=== PATIENT | male | born 1950 | race Caucasian/White ===

== ENCOUNTER 2020-12-19 10:44 | Outpatient (CLI) | payer MEDICARE, SELFPAY ==
--- NOTE | ~2020-12-19 | US_ITS ---
EXAMINATION: US venous doppler [facility] DATE: 12/19/2020 11:17 INDICATION: Left lower limb swelling TECHNIQUE: Alvarado scale images without and with compression and Doppler images of the left lower extrem ity veins were obtained. COMPARISON: None FINDINGS: The left common femoral vein, profunda femoral vein, femoral vein, popliteal vein, peroneal trunk, posterior tibial veins, and greater saphenous vein are patent. A 3.3 x 2.6 x 0.7 cm Calabrese's c yst is noted in the left popliteal fossa. IMPRESSION: 1. Patent left lower extremity veins. No evidence of deep venous thrombosis. Reviewed, dictated and finalized at location A. 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
== END 2020-12-19 10:45 | disposition home or self-care (01) ==
LOC: ANHIMG 10:48
PROVIDERS: PCP Family Medicine; Visit Provider Orthopaedic Surgery
DX: M79.89 Other specified soft tissue disorders (principal)
CPT/HCPCS: 93971

== ENCOUNTER 2021-04-02 17:21 | Emergency (ER) | payer MEDICARE, SELFPAY ==
--- NOTE | ~2021-04-02 | XR_ITS ---
EXAMINATION: XR chest 2V 04/02/2021 18:06 INDICATION: Midsternal chest pain PROCEDURE: 2 view chest COMPARISON: 08/25/2016 FINDINGS: The lungs are clear. The cardiomediastinal silhouette is within normal limits. There are no pleural effusions. There is no pneumothorax suspected. IMPRESSION: 1: NO ACUTE CARDIOPULMONARY DISEASE. Reviewed, dictated and finalized at location A.
--- NOTE | 2021-04-02 17:28 | ECG_ITS ---
Measurements Intervals [place] Rate: 99 P: 30 WV: 163 QRS: 16 QRSD: 98 T: 4 QT: 330 QTc: 423 Interpretive Statements SINUS RHYTHM BORDERLINE ST-T WAVE ABNORMALITY- ANTEROLAT/INF LEADS BASELINE ARTIFACT- I, II, AVR, AVF BORDERLINE ECG Electronically Signed On 04-02-2021 20:29:10 CDT by Sami Chow D.O.
[2021-04-02 17:44] VITALS: BP 132/73; PULSE 97; RESP 22; TEMP 36.3; O2SAT 97
[2021-04-02 17:56] LABS: Basophils Percent Auto 0.4 % (0.2-1.2); Eosinophils Percent Auto 0.1 % (0-4.4); Hematocrit 46.3 % (42.0-52.0); Immature Granulocyte Absolute 0.03 K/mm3 (0.00-0.031); Immature Granulocyte Percent A 0.3 % (0-0.5); Lymphocytes Absolute Auto 0.51 K/mm3 (0.9-3.2); Lymphocytes Percent Auto 5.2 % (18.3-44.2); Mean Corpuscular HGB Conc 34.6 g/dl (32-36); Mean Corpuscular Hemoglobin 29.4 pg (26-34); Mean Corpuscular Volume 85.1 fl (80-100); Mean Platelet Volume 9.7 fl (7.4-10.4); Monocytes Absolute Auto 0.7 K/mm3 (0.1-0.6); Monocytes Percent Auto 7.3 % (2.6-8.5); Neutrophils Absolute Auto 8.5 K/mm3 (1.3-6.7); Neutrophils Percent Auto 86.7 % (45.5-73.1); Platelet Count Result 225 k/mm3 (150-375); Red Blood Count 5.44 M/mm3 (4.6-6.20); Red Cell Distribution Width 12.6 % (11.5-14.5); White Blood Count 9.8 K/mm3 (4.5-10.0)
[2021-04-02 18:07] LABS: Partial Thromboplastin Time 24.3 SECONDS (22.3-36.8)
[2021-04-02 18:10] LABS: Anion Gap 11 mmol/L (8-16); Blood Urea Nitrogen 13 mg/dL (9-20); Calcium 9.7 mg/dL (8.4-10.2); Carbon Dioxide 26 mmol/L (22-30); Chloride 101 mmol/L (98-107); Estimated CRCL calculation 74 ml/min; Estimated Glomerular Filt Rate > 60; Glucose 151 mg/dL (75-110); Potassium 2.8 mmol/L (3.4-5.0); Sodium 138 mmol/L (137-145)
[2021-04-02 18:20] LABS: Troponin I < 0.012 ng/mL (0.000-0.034)
--- NOTE | 2021-04-02 18:31 | ED.GENADULT ---
HPI - General Adult General Chief complaint: Chest Pain <Kendra Alvarez MD - Last Filed: 04/08/21 23:14> Stated complaint: Chest Pain <Kendra Alvarez MD - Last Filed: 04/08/21 23:14> Time Seen by Provider: 04/02/21 18:18 <Kendra Alvarez MD - Last Filed: 04/08/21 23:14> Source: patient <Kendra Alvarez MD - Last Filed: 04/08/21 23:14> History of Present Illness HPI narrative: Patient is a 70 y/o male complaining of chest pain staring 6 hours ago after he ate some taco. He states that his pain was located in mid sternal area. He describes his pain as sharp and burning and rates it as 6/10. He took some Pepcid which helped with his pain. His chest pain lasted about 3 hours and he is currently pain free. <Kendra Alvarez MD - Last Filed: 04/08/21 23:14> Related Data Home medications: Home Medications Medication Instructions Recorded Confirmed aspirin 81 mg tablet,delayed 81 mg PO DAILY 12/28/19 12/06/20 release <Kendra Alvarez MD - Last Filed: 04/08/21 23:14> Allergies/adverse reactions: Allergies Allergy/AdvReac Type Severity Reaction Status Date / Time No Known Allergies Allergy Unverified 01/26/20 14:52 <Kendra Alvarez MD - Last Filed: 04/08/21 23:14> Review of Systems Constitutional: Constitutional: Denies chills, Denies fever(s), Denies headache(s) and Denies weakness <Kendra Alvarez MD - Last Filed: 04/08/21 23:14> Eyes: Eyes: Denies blurry vision <Kendra Alvarez MD - Last Filed: 04/08/21 23:14> ENT: Denies headache(s) and Denies neck pain <Kendra Alvarez MD - Last Filed: 04/08/21 23:14> Cardiovascular: Cardiovascular: Reports chest pain and Denies dyspnea <Kendra Alvarez MD - Last Filed: 04/08/21 23:14> Respiratory: Respiratory: Denies cough and Denies dyspnea <Kendra Alvarez MD - Last Filed: 04/08/21 23:14> Gastrointestinal: Gastrointestinal: Denies abdominal pain, Denies diarrhea, Denies nausea and Denies vomiting <Kendra Alvarez MD - Last Filed: 04/08/21 23:14> Genitourinary: Genitourinary: Denies hematuria and Denies dysuria <Kendra Alvarez MD - Last Filed: 04/08/21 23:14> Musculoskeletal: Musculoskeletal: Denies back pain and Denies neck pain <Kendra Alvarez MD - Last Filed: 04/08/21 23:14> Neurologic: Denies headache(s) and Denies weakness <Kendra Alvarez MD - Last Filed: 04/08/21 23:14> [facility] Past Medical History Medical History: Medical History Acute pain of left knee Bilateral carpal tunnel syndrome Colon cancer screening Essential (primary) hypertension Functional diarrhea History of prostate cancer Low TSH level Mixed hyperlipidemia Seasonal allergic rhinitis Ulnar neuropathy of both upper extremities <Kendra Alvarez MD - Last Filed: 04/08/21 23:14> Surgical History Surgical History: Surgical History H/O hernia repair (~2017) H/O prostatectomy (~2001) History of cholecystectomy (~2015) <Kendra Alvarez MD - Last Filed: 04/08/21 23:14> Family History Family History: Family History Mother Heart disease Hypertension Father Heart disease Hypertension Grandparent Alzheimer disease Grandparent Heart disease Hypertension Grandparent Acute myocardial infarction Grandparent Acute myocardial infarction <Kendra Alvarez MD - Last Filed: 04/08/21 23:14> Social History Social History: Social History Smoking status: Never smoker Alcohol intake: never Substance use: never Substance use type: does not use Gender identity (if verbalized by the patient): Male <Kendra Alvarez MD - Last Filed: 04/08/21 23:14> Exam Const: General: no acute distress and well developed <Kendra Alvarez MD - Last Filed: 04/08/21 23:14> O
[2021-04-02] MEDS: POTASSIUM CHLORIDE 20 MEQ TABLET 40 MEQ PO (18:34)
[2021-04-02] MEDS: ASPIRIN 81 MG CHEWABLE TABLET 324 MG PO (18:38)
[2021-04-02 20:04] VITALS: BP 123/65; PULSE 85; RESP 27; O2SAT 97
== END 2021-04-02 20:05 | disposition left against medical advice (07) ==
PROVIDERS: Emergency Medicine; Emergency Provider Emergency Medicine; PCP Family Medicine
DX: R07.2 Precordial pain (principal); E87.6 Hypokalemia; I10 Essential (primary) hypertension; Z85.46 Personal history of malignant neoplasm of prostate; E78.2 Mixed hyperlipidemia; G56.23 Lesion of ulnar nerve, bilateral upper limbs; Z90.79 Acquired absence of other genital organ(s); Z79.82 Long term (current) use of aspirin; R94.31 Abnormal electrocardiogram [ECG] [EKG]
CPT/HCPCS: 36415; 71046; 80048; 84484; 85025; 85610; 85730; 93005; 99284; A9270

== ENCOUNTER 2021-05-27 08:21 | Outpatient (CLI) | payer MEDICARE, SELFPAY ==
--- NOTE | ~2021-05-27 | MR_ITS ---
EXAMINATION: MR MRCP wo/w con/w 3D wo ind DATE: 05/27/2021 10:13 INDICATION: Abnormal levels of other serum enzymes TECHNIQUE: Magnetic resonance imaging (MRI) of the abdomen was performed without and with intravenous contrast. Sequences included coronal T2-weighted SS-FSE ARC, coronal T2-weighted FS SS-FSE, coronal T2-weighted 2D FS FIESTA, Water:Coronal LAVA-Flex, sagittal T2-weighted SS-FSE ARC, axial SSFSE ARC, axial 3D DualEcho, axial DWI B=600, axial T1-weighted LAVA, FAT:Coronal LAVA-Flex, and coronal in and opposed phase LAVA-Flex. Thick-slab T2-weighted FRFSE-XL images were obtained for magnetic resonance cholangiopancreatography (MRCP). Maximum intensity projection 3-D reconstructions of the volumetric data were created by the technologist. Postcontrast sequences included a time course of axial T1-weig hted LAVA, FAT:Coronal LAVA-Flex, coronal in and opposed phase LAVA-Flex, and Water:Coronal LAVA-Flex . COMPARISON: 01/17/2019 CONTRAST: Multihance, 16 cc FINDINGS: ABDOMEN MRI: There are changes of interval cholecystectomy. Cysts of the liver measure up to 11 mm in the left hepatic lobe. There is a subtle 11 mm enhancing lesion in the right hepatic lobe seen only on the late arterial/early portal venous postcontrast sequence image 33. There appears to be a tiny f ocally dilated bile duct in the peripheral aspect of liver segment VIII. Bilateral gynecomastia is no jovanni. The heart size is normal. The spleen, pancreas, and adrenal glands are normal. Cysts of the kidn eys measure up to 3 cm on the right. There are no pathologically enlarged abdominal lymph nodes. No d ilated loops of bowel are present. There is a large volume of colonic stool. ABDOMEN MRCP: There is no extrahepatic biliary dilatation. The common bile duct measures up to 4 mm. The pancreatic duct is normal in course and caliber. IMPRESSION: 1. No MR correlate for abnormal liver function tests. 2. Mildly dilated intrahepatic duct of the right hepatic lobe of unclear etiology. Follow-up MRI with out and with contrast in six months is recommended. 3. 11 mm lesion of the right hepatic lobe which could reflect transient hepatic intensity difference or possibly focal nodular hyperplasia. This can be evaluated at the same time as follow-up of the dil ated intrahepatic duct. Reviewed, dictated and finalized at location B. IMPRESSION: 1. No MR correlate for abnormal liver function tests. 2. Mildly dilated intrahepatic duct of the right hepatic lobe of unclear etiolo gy. Follow-up MRI without and with contrast in six months is recommended. 3. 11 mm lesion of the right hepatic lobe which could reflect transient hepatic intensity difference or possibly focal nodular hyperplasia. This can be evalua jovanni at the same time as follow-up of the dilated intrahepatic duct.
[2021-05-27 10:53] LABS: Alanine Aminotransferase 66 U/L (4-50); Albumin Level 4.1 g/dL (3.5-5.1); Alkaline Phosphatase 83 U/L (38-126); Anion Gap 8 mmol/L (8-16); Aspartate Amino Transferase 34 U/L (17-59); Bilirubin,Total 0.9 mg/dL (0.2-1.3); Blood Urea Nitrogen 9 mg/dL (9-20); Calcium 9.2 mg/dL (8.4-10.2); Carbon Dioxide 24 mmol/L (22-30); Chloride 107 mmol/L (98-107); Estimated Glomerular Filt Rate > 60; Glucose 100 mg/dL (65-110); Potassium 4.3 mmol/L (3.4-5.0); Sodium 139 mmol/L (137-145)
[2021-05-27 12:08] LABS: Hepatitis B Surface Antigen Negative (Negative)
[2021-05-27 12:25] LABS: Hepatitis C Virus Antibody Negative (Negative)
[2021-05-27 13:01] LABS: HAV RESULT Negative (Negative); Hepatitis B Core IgM Result Negative (Negative)
[2021-06-02 09:52] LABS: Mitochondrial (M2) Ab (IgG) 27.5 U (<=20.0)
== END 2021-05-27 08:22 | disposition home or self-care (01) ==
PROVIDERS: PCP Family Medicine; Visit Provider Nurse Practitioner Family
DX: R74.8 Abnormal levels of other serum enzymes (principal); R10.11 Right upper quadrant pain; E87.6 Hypokalemia
CPT/HCPCS: 36415; 74183; 76376; 80053; 80074; 83520; 86038; A9577

== ENCOUNTER → 2021-08-09 08:14 | Outpatient (CLI) | payer MEDICARE, SELFPAY ==
[2021-08-09 18:36] LABS: SARS-CoV-2 RNA PCR Negative
== END ==
PROVIDERS: PCP Family Medicine; Visit Provider Family Medicine
DX: J01.00 Acute maxillary sinusitis, unspecified (principal); Z20.822 Contact with and (suspected) exposure to COVID-19
CPT/HCPCS: C9803; U0003; U0005

== ENCOUNTER 2022-03-13 00:18 | Day surgery (SDC) | payer MEDICARE, SELFPAY ==
[2022-03-06 12:16] VITALS: BMI 28.0
[2022-03-13 08:17] VITALS: BP 147/82; PULSE 70; RESP 18; TEMP 36.3; O2SAT 99
--- NOTE | 2022-03-13 08:18 | WPDGICN ---
Assessment and Plan Assessment and plan (1) Encounter for screening colonoscopy: Code(s): Z12.11 - Encounter for screening for malignant neoplasm of colon Status: Acute Assessment and Plan: Patient presents today for screening colonoscopy. He appears to be at average risk for colon polyps. GI Consult Note Consult date/time: 03/13/22 08:18 HPI: Aurelio Young Jr. is a 71 year old male Presents for screening colonoscopy. Patient reports his current weight appetite and bowel movements are normal. He denies abdominal pain. He has had no bleeding. His last colonoscopy was 10 years ago. Presents today for neoplasia screening. Patient does have a prior history of ERCP and clearance of the common bile duct at a different institution. 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 Labs on 12/27/2021 with GGT 15, AST 24 ALT 37. Essential (primary) hypertension Functional diarrhea History of prostate cancer PSA less than 0.1 on 06/24/2021 Hypokalemia Indigestion Low TSH level Mixed hyperlipidemia Total cholesterol 191, triglycerides 102, HDL 52, LDL 119 on 06/24/2021 . Total cholesterol 119, triglycerides 101, HDL 50, LDL 51 on 12/27/2021 RUQ pain Seasonal allergic rhinitis Ulnar neuropathy of both upper extremities Surgical History Surgical History H/O hernia repair (~2016) H/O prostatectomy (~2001) History of cholecystectomy (~2015) Family History Family History Mother Heart disease Hypertension Father Heart disease Hypertension Grandparent Alzheimer disease Grandparent Heart disease Hypertension Grandparent Acute myocardial infarction Grandparent Acute myocardial infarction Social History Social History Smoking status: Never smoker Alcohol intake: never Substance use: never Substance use type: does not use Living arrangements: with family Gender identity (if verbalized by the patient): Male Spiritual care concerns: No Meds Home Medications and Allergies Home Medications Medication Instructions Recorded Confirmed Type aspirin 81 mg tablet,delayed 81 mg PO DAILY 12/28/19 03/06/22 History release metoprolol succinate 50 mg 50 mg PO DAILY #90 tablet 05/21/20 03/06/22 Rx tablet,extended release 24 hr tgysiapi-ipx-FB 200 mcg-vit K 15 1 tablet PO DAILY tablet 06/10/21 03/06/22 History mcg-lycope 150 wwe-fipfku-epbw tablet atorvastatin 20 mg tablet 20 mg PO DAILY 12/17/21 03/06/22 History losartan 50 mg tablet 50 mg PO DAILY #30 tablet 12/17/21 03/06/22 Rx Allergies Allergy/AdvReac Type Severity Reaction Status Date / Time No Known Allergies Allergy Verified 03/13/22 08:16 Exam Narrative: Physical exam reveals patient to be alert. Vital signs stable. HEENT exam is unremarkable. Patient is anicteric. Lungs are clear to auscultation and percussion. Heart is without murmur or extra sounds. Abdominal exam bowel sounds are present soft nontender with no organomegaly. Digital external rectal exam is normal.
[2022-03-13] MEDS: LACTATED RINGERS 1,000 ML 150 ML IV CONT (08:29)
--- NOTE | 2022-03-13 08:44 | WPDANESEPPF ---
Anes - Initial Pre Proc Eval Procedure: Operation Date: 03/13/22 09:30 Proposed Procedures p Screening Colonoscopy - Pernell Valentine MD Date/Time: 03/13/22 08:44 Surgeon: Pernell Valentine MD Pre Op Diagnosis: neoplasm screening Patient Data Age: 71 Gender: M Height: 1.75 m Weight: 89.4 kg Last Vital Signs Temp 36.3 C L 03/13/22 08:17 Pulse 70 03/13/22 08:17 Resp 18 03/13/22 08:17 BP 147/82 H 03/13/22 08:17 Pulse Ox 99 03/13/22 08:17 Allergies Allergy/AdvReac Type Severity Reaction Status Date / Time No Known Allergies Allergy Verified 03/13/22 08:16 Home Medications Medication Instructions Recorded Confirmed Type aspirin 81 mg tablet,delayed 81 mg PO DAILY 12/28/19 03/06/22 History release metoprolol succinate 50 mg 50 mg PO DAILY #90 tablet 05/21/20 03/06/22 Rx tablet,extended release 24 hr edwamvms-eow-DP 200 mcg-vit K 15 1 tablet PO DAILY tablet 06/10/21 03/06/22 History mcg-lycope 150 zxo-yhdfht-sblg tablet atorvastatin 20 mg tablet 20 mg PO DAILY 12/17/21 03/06/22 History losartan 50 mg tablet 50 mg PO DAILY #30 tablet 12/17/21 03/06/22 Rx Patient hx anesthesia problems: none Family hx anesthesia problems: none Results Review: All pre-operative results and documents have been reviewed as part of the pre-operative evaluation. 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 Labs on 12/27/2021 with GGT 15, AST 24 ALT 37. Essential (primary) hypertension Functional diarrhea History of prostate cancer PSA less than 0.1 on 06/24/2021 Hypokalemia Indigestion Low TSH level Mixed hyperlipidemia Total cholesterol 191, triglycerides 102, HDL 52, LDL 119 on 06/24/2021 . Total cholesterol 119, triglycerides 101, HDL 50, LDL 51 on 12/27/2021 RUQ pain Seasonal allergic rhinitis Ulnar neuropathy of both upper extremities Surgical History Surgical History H/O hernia repair (~2016) H/O prostatectomy (~2001) History of cholecystectomy (~2015) Family History Family History Mother Heart disease Hypertension Father Heart disease Hypertension Grandparent Alzheimer disease Grandparent Heart disease Hypertension Grandparent Acute myocardial infarction Grandparent Acute myocardial infarction Social History Social History Smoking status: Never smoker Alcohol intake: never Substance use: never Substance use type: does not use Living arrangements: with family Gender identity (if verbalized by the patient): Male Spiritual care concerns: No Anes - Eval Final PreProcedure Day of Procedure 03/13/22 08:44 Patient weight: overweight Heart: regular rate and rhythm Lungs: decreased breath sounds Airway: Mallampati scale class II Neurological: alert and oriented Last oral intake: >/= 8 hours ASA classification: III Emergent: no Anesthetic plan: proceed Anesthesia type and monitoring: general GIVS and standard monitoring Results Review: All pre-operative results and documents have been reviewed as part of the pre-operative evaluation. Informed Consent: The patient's anesthetic plan and its attendant risks and benefits were discussed with the patient/family/POA. Questions were solicited and answers provided to the satisfaction of the patient/fami
[2022-03-13 09:08] VITALS: BP 89/51; PULSE 56; RESP 22; O2SAT 98
[2022-03-13 09:18] VITALS: BP 89/48; PULSE 52; RESP 22; O2SAT 97
[2022-03-13 09:23] VITALS: BP 117/65; PULSE 50; RESP 18; O2SAT 100
== END 2022-03-13 09:35 | disposition home or self-care (01) ==
PROVIDERS: PCP Family Medicine; Visit Provider Internal Medicine Gastroenterology
PROC: 0DJD8ZZ Inspection of Lower Intestinal Tract, Via Natural or Artificial Opening Endoscopic (ICD-10-PCS; CPT 45378; principal; 2022-03-13 09:30)
DX: Z12.11 Encounter for screening for malignant neoplasm of colon (principal); I10 Essential (primary) hypertension; E78.2 Mixed hyperlipidemia; K64.8 Other hemorrhoids; K59.1 Functional diarrhea; J30.9 Allergic rhinitis, unspecified; G56.23 Lesion of ulnar nerve, bilateral upper limbs; Z85.46 Personal history of malignant neoplasm of prostate
CPT/HCPCS: G0121; J2704; J7120

== ENCOUNTER 2023-09-08 07:00 | Outpatient (NON) | payer MEDICARE, SELFPAY | END 2023-09-08 07:01 | disposition home or self-care (01) | LOC: ANHLAB 09-09 14:27 | PROVIDERS: PCP Family Medicine; Visit Provider Nurse Practitioner | DX: L57.8 Other skin changes due to chronic exposure to nonionizing radiation (principal); L90.5 Scar conditions and fibrosis of skin | CPT/HCPCS: 88305 ==

== ENCOUNTER 2025-01-06 06:33 | Outpatient (CLI) | payer MEDICARE, SELFPAY | END 2025-01-06 06:34 | disposition home or self-care (01) | PROVIDERS: PCP Family Medicine; Visit Provider Nurse Practitioner Family | DX: R10.11 Right upper quadrant pain (principal); K83.8 Other specified diseases of biliary tract; K76.9 Liver disease, unspecified | CPT/HCPCS: 74183; 76376; A9577 ==

== ENCOUNTER 2025-06-07 07:32 | Outpatient (CLI) | payer MEDICARE, SELFPAY ==
--- NOTE | ~2025-06-07 | CT_ITS ---
CT of the Abdomen and Pelvis: Indication: Hematuria Technique: 2.5 mm axial scans were obtained through the abdomen and pelvis prior to and following in travenous administration of 130 cc of Omnipaque 350. Dose reduction technique was used on this scan b y utilizing automated exposure control and iterative reconstruction technique. The dose-length produc t (DLP) was 2289.84 mGy-cm. Findings: Scans through the lung bases demonstrate 3 mm right lower lobe pulmonary nodule, and 3 mm left lower lobe pulmonary nodule. The liver, spleen, pancreas, adrenals and kidneys are unremarkable, aside from right renal cyst. Chol ecystectomy clips are present. There are atherosclerotic calcifications of the aorta. No lymphadenop athy. No bowel obstruction or bowel wall thickening. There is no evidence to suggest acute appendicitis. Images through the pelvis were performed. Urinary bladder unremarkable. Status post prostatectomy. No pelvic mass evident. No ascites. Impression: No distinct etiology for hematuria identified. Status post prostatectomy. Subcentimeter pulmonary nodules, as above, most likely benign. Reviewed, dictated and finalized at [facility]. Impression: No distinct etiology for hematuria identified. Status post prostatectomy. Subcentimeter pulmonary nodules, as above, most likely benign.
--- OUTSIDE RECORDS SUMMARY | 2025-06-07 07:34 | XMS_ITS | Encounter Summary ---
Author Organization [facility] Address [address] [place] [address] Care Team Providers Care Learning Center Instructor Name Role Phone Unavailable Primary Care Provider Unavailabl e Encounter Details Date Type Department Care Team (Late st Contact Info) Description 12/01/2024 Lab Requisition [facility] - DermPath Lab [address] [place] [id number] Gunjan Moore MD [address] [place] [address] Social History Tobacco Use Types Packs/Day Years Used Date Smoking Tobacco: Never Smokeless Tobacco: Never Alcohol Use Standard Drinks/Week Comments Not Currently 0 (1 standard drink = 0.6 oz pur e alcohol) Sex and Gender Information Value Date Recorded Sex Assigned at Not on file Legal Sex Male 11:50 AM CDT Gender Identity Not on file Sexual Orientation Not on file documented as of this encounter Plan of Treatment Not on file documented as of this encounter Goals Goal Patient Goal Type Associated Problems Recent Progress Patient-Stated? Author Medication Management General On track( 021 12:16 PM CDT) No Lauren Nix RN Note: Expected end date: ongoing Interventions: Take all medications as prescribed Let your doctor know right away about any changes in your medications Make sure to request a refill of your medication at least one week prior to your last dose documented as of this encounter Procedures Procedure Name Priority Date/Time Associated Diagnosis Comments DERMATOPATHOLOGY Routine 12/01/2024 3:26 PM RETAIL BUYER documented in this encounter Results * DERMATOPATHOLOGY (12/01/2024 3:26 PM RETAIL BUYER) Case Report Dermatopathology Report Case: [id number] Authorizing Provider: Gunjan Moore MD Collected: 12/01/2024 03:26 PM Ordering Location: [facility] - Received: 12/02/2024 01:42 PM DermPath Lab Pathologist: Odalis Vasquez MD Specimens: A) - Skin, right superior parietal scalp - 12 to 3 B) - Skin, right superior parietal scalp - 3 to 6 C) - Skin, right superior parietal scalp - 6 to 9 D) - Skin, right superior parietal scalp - 9 to 12 E) - Skin, right superior parietal scalp - debulk 1:47 PM [facility]ERMAT[facility] Final Diagnosis Specimen A. SKIN, right superior parietal scalp - 12 to 3: ACTINIC KERATOSIS (L57.0) SOLAR ELASTOSIS (L57.8) (see microscopic description) Specimen B. SKIN, right superior parietal scalp - 3 to 6: SOLAR ELASTOSIS (L57.8) (see microscopic description) Specimen C. SKIN, right superior parietal scalp - 6 to 9: SOLAR ELASTOSIS (L57.8) (see microscopic description) Specimen D. SKIN, right superior parietal scalp - 9 to 12: SOLAR ELASTOSIS (L57.8) (see microscopic description) Specimen E. SKIN, right superior parietal scalp - debulk: DERMAL SCAR RESIDUAL MELANOMA NOT IDENTIFIED (L90.5) (see microscopic description) 1:47 PM [facility] DERMATOPATH[facility]Y [facility] at [address] RETAIL BUYER Clinical History Bx proven MIS Please check margins 1:47 PM [facility] DERMATOPATHOLOGY LABORATORY Gross Description A: 18x7x4 B: 19x7x3 C: 22x7x3 D: 19x7x4 E: [id number] 5 1:47 PM [facility] DERMATOP[facility]Y [facility] Microscopic Description Specimen A. SKIN, right superior parietal scalp - 12 to 3: There is focal parakeratosis. The lower half of the epidermis shows disorderly maturation of keratinocytes with nuclear pleomorphism. The specimen exhibits solar elastosis within the dermis. MART-1/Melan-A staining highlights regular periodicity of melanocytes along the dermoepidermal junction. This immunohistochemical stain was performed after the hematoxylin and eosin stain was reviewed to further assess margins for treatment. Specimen B. SKIN, right superior parietal scalp - 3 to 6: The specimen exhibits solar elastosis within the dermis. MART-1/Melan-A staining highlights regular periodicity of melanocytes along the dermoepidermal junction. This immunohistochemical stain was performed after the hematoxylin and eosin stain was reviewed to further assess margins for treatment. Specimen C. SKIN, right superior parietal scalp - 6 to 9: The specimen exhibits solar elastosis within the dermis. MART-1/Melan-A staining highlights regular periodicity of melanocytes along the dermoepidermal junction. This immunohistochemical stain was performed after the hematoxylin and eosin stain was reviewed to further assess margins for treatment. Specimen D. SKIN, right superior parietal scalp - 9 to 12: The specimen exhibits solar elastosis within the dermis. MART-1/Melan-A staining highlights regular periodicity of melanocytes along the dermoepidermal junction. This immunohistochemical stain was performed after the hematoxylin and eosin stain was reviewed to further assess margins for treatment. Specimen E. SKIN, right superior parietal scalp - debulk: There are fibroblasts and collagen bundles oriented parallel to the skin surface. There are elongated blood vessels, some of which are oriented perpendicular to the skin surface. No residual melanoma is identified on routine sections or on MART-1/MelanA immunostain. This immunohistochemical stain was performed after the hematoxylin and eosin stain was reviewed to further assess margins for treatment. 5 1:47 PM [facility]ERMAT[facility] Disclaimer An external and internal positive and negative controls are appropriate for the histochemical, immunohistochemical and immunofluorescence stain(s) in this case (if any), except where stated explicitly. The performance characteristics of the stain(s) cited in this report were developed and its performance characteristic determined by the Dermatopathology Laboratory at [facility], directed by Dr. Sal Blount. These tests need not be, and therefore are not, approved by the [place] Food and Drug Administration. The tests are used for clinical purposes. Billing Codes Specimen Charges Stain Charges 72666 00118 44907 33441 19085 1 1 1 1 1 47044 43474 17880 46754 17729 1 1 1 1 1 5 1:47 PM [facility] Embedded Images 1:47 PM [facility] DERMATOP[facility]Y [facility] Pathology/Cytology TISSUE SPECIMEN FROM SKIN / Unknown 12/01/2024 3:26 PM RETAIL BUYER 12/02/2024 1:42 PM RETAIL BUYER Miscellaneous samples (specimen) TISSUE SPECIMEN FROM SKIN / Unknown 12/01/2024 3:26 PM RETAIL BUYER 12/02/2024 2:03 PM RETAIL BUYER Miscellaneous samples (specimen) TISSUE SPECIMEN FROM SKIN / Unknown 12/01/2024 3:26 PM RETAIL BUYER 12/02/2024 2:03 PM RETAIL BUYER Miscellaneous samples (specimen) TISSUE SPECIMEN FROM SKIN / Unknown 12/01/2024 3:26 PM RETAIL BUYER 12/02/2024 2:03 PM RETAIL BUYER Miscellaneous samples (specimen) TISSUE SPECIMEN FROM SKIN / Unknown 12/01/2024 3:26 PM RETAIL BUYER 12/02/2024 2:03 PM RETAIL BUYER us Gunjan Moore MD LAB - PATHOLOGY/CYTOLOGY ORDERA BLES Final Result DERMATOPATHOLOGY LABORATORY [facility] - Department of Dermatology [facility] Specialized Medicine [address] [place] [address], [address] [phone] documented in this encounter Visit Diagnoses Not on filedocumented in this encounter
--- OUTSIDE RECORDS SUMMARY | 2025-06-07 07:34 | XMS_ITS | Encounter Summary ---
Author Organization [facility] Address [address] [place] [address] Care Team Providers Care Operations Support Coordinator Name Role Phone Unavailable Primary Care Provider Unavailabl e Encounter Details Date Type Department Care Team (Late st Contact Info) Description 08/26/2023 Lab Requisition [facility] - DermPath Lab [address] [place] [id number] Social History Tobacco Use Types Packs/Day Years [...] General On track( 021 12:16 PM CDT) Lauren Lomeli, RN Note: Expected end date: ongoing Interventions: Take all medications as prescribed Let your doctor know right away about any changes in your medications Make sure to request a refill of your medication at least one week prior to your last dose documented as of this encounter Visit Diagnoses Not on filedocumented in this encounter
--- OUTSIDE RECORDS SUMMARY | 2025-06-07 07:35 | XMS_ITS | Clinical Summary ---
Author Organization [facility] Address [address] [place] [address] Care Team Providers Care Human Services Instructor Name Role Phone Unavailable Primary Care Provider Unavailabl e Source Comments [facility],non-owned Affiliates and Associated Physician Practices is amultiple site organization consisting of ambulatory clinics and hospital sitesin [place], [place], [place] and [place]. This disclosure is being madepursuant to the Care Everywhere program and may not contain all information available regarding this patient. Last updated 18.[facility] Allergies No known active allergies Medications * Be aware that medications may not be up to date on this document. Alwaysverify current medications with the patient. aspirin EC (ECOTRIN) 81 MG tablet every 24 hours Active metoprolol succinate XL 24hr (TOPROL XL) 50 MG tablet 07/23/2020 Active losartan (COZAAR) 25 MG tablet losartan 25 mg tablet 05/20/2021 Active Cholestyramine 4 GM/DOSE 04/11/2021 Active polyethylene glycol (GAVILYTE-C) 240 g solution Drink 1/2 of prep at 5pm the night before test. Finish the prep at 4am the day of test. 4000 mL 12/04/2021 Active Active Problems No known active problems Immunizations Immunization Administration Dates Next Due Covid Moderna primary monovalent 12+ yr 0.5mL ,01/16/2021 Social History Tobacco Use Types Packs/Day Years Used Date Smoking Tobacco: Never Smokeless Tobacco: Never Alcohol Use Standard Drinks/Week Comments Not Currently 0 (1 standard drink = 0.6 oz pur e alcohol) Sex and Gender Information Value Date Recorded Sex Assigned at Not on file Legal Sex Male 11:50 AM CDT Gender Identity Not on file Sexual Orientation Not on file Last Filed Vital Signs Vital Sign Reading Time Taken Comments Blood Pressure 154/77 08/15/2021 12:14 PM CDT Pulse 55 08/15/2021 12:14 PM CDT Temperature 36.4 C (97.6 F) 08/15/2021 12:14 PM CDT Respiratory Rate 16 08/15/2021 12:14 PM CDT Oxygen Saturation 100% 08/15/2021 12:14 PM CDT Inhaled Oxygen Concentration - - Weight 90.1 kg (198 lb 9.6 oz) 08/15/2021 12:14 PM CDT Height 175.3 cm (5' 9) 08/15/2021 12:14 PM CDT Body Mass Index 29.33 08/15/2021 12:14 PM CDT Plan of Treatment Health Maintenance Due Date Last Done Comments DTAP/TDAP/TD VACCINES (1 - Tdap) 1968 PNEUMOCOCCAL VACCINE 50+ (1 of 1 - PCV) 1999 ZOSTER VACCINE (1 of 2) 1999 Respiratory Syncytial Virus (RSV) Vaccine Pt: or over 60 yrs (1 - 1-dose 75+ series) 2024 COVID-19 VACCINE (3 - 2023-2 5 season) 2024 02/16/2021, 01/16/2021 DEPRESSION SCREENING 11/09/2024 MEDICARE AWV CALENDAR YEAR 2024 INFLUENZA VACCINE (#1) 2025 HEPATITIS C SCREENING Completed 08/23/2021 , 05/17/2021 HEPATITIS B VACCINE Aged Out No longe r eligible based on patient's age to complete this topic HIB VACCINE Aged Out No longer eligi ble based on patient's age to complete this topic HPV VACCINE Aged Out No longer eligi ble based on patient's age to complete this topic MENINGOCOCCAL (Group B) VACCINE SHARED DECISION-MAKING Aged Out No longer eligible based on patient's age to complete this topic MENINGOCOCCAL GROUPS A/C/Y/W VACCINE Aged Out No longer eligible b ased on patient's age to complete this topic Goals Goal Patient Goal Type Associated Problems [...] one week prior to your last dose Procedures Procedure Name Priority Date/Time Associated Diagnosis Comments HEPATITIS PANEL (REFLEXED) PO REF LAB 08/23/2021 8:32 AM CDT from Last 3 Months or Most Recently Relevant to Health Maintenance Results * HEPATITIS PANEL (REFLEXED) PO REF LAB (08/23/2021 8:32 AM CDT) Hepatitis A Virus Antibody Total NON-REACT JHOANA NON-REACT JHOANA [facility] Comment: Our records indicate that you have ordered a client custom reflex order code. Only the initial test was performed because we do not have a client custom reflex testing authorization request form on file for you. Please contact a client reporting associate if you would like additional testing done on this patient or contact your textile designs sales representative to obtain a client custom reflex testing authorization request form. Hepatitis B Virus Surface Antibody NON-REACT JHOANA NON-REACT JHOANA [facility] Hepatitis B Virus Surface Antigen NON-REACT JHOANA NON-REACT JHOANA [facility] Confirmation [facility] Hepatitis B Core Virus Antibody Total NON-REACT JHOANA NON-REACT JHOANA [facility] Hepatitis C Antibody NON-REACT JHOANA NON-REACT JHOANA [facility] Signal to Cut-Off 0.01 <1.00 [facility] Comment: HCV antibody was non-reactive. There is no laboratory evidence of HCV infection. In most cases, no further action is required. However, if recent HCV exposure is suspected, a test for HCV RNA (test code 20000) is suggested. For additional information please refer to http://education.Parature/faq/YGF15w8 (This link is being provided for informational/ educational purposes only.) Test Performed at: [facility] [address] [place] [address] HUMA HOLLIDAY DO,MPH 08/23/2021 8:32 AM CDT 08/23/2021 8:39 AM CDT Anthony Muniz MD LAB - CHEMISTRY ORDERABLES F inal Result [facility] [address] [place] [address] from Last 3 Months or Most Recently Relevant to Health Maintenance Insurance
--- OUTSIDE RECORDS SUMMARY | 2025-06-07 07:35 | XMS_ITS | Encounter Summary ---
Author Organization [facility] Address [address] [place] [address] Care Team Providers Care Ropeman Name Role Phone Unavailable Primary Care Provider Unavailabl e Encounter Details Date Type Department Care Team (Late st Contact Info) Description 08/26/2023 Lab Requisition [facility] - DermPath Lab [address] [place] [id number] Anthony Cordova MD [address] [place] [address] Social History Tobacco Use Types Packs/Day Years [...] track( 021 12:16 PM CDT) No Lauren Nix, KAELA Note: Expected end date: ongoing Interventions: Take all medications as prescribed Let your doctor know right away about any changes in your medications Make sure to request a refill of your medication at least one week prior to your last dose documented as of this encounter Procedures Procedure Name Priority Date/Time Associated Diagnosis Comments DERMATOPATHOLOGY Routine 08/21/2023 12:0 0 AM CDT documented in this encounter Results * DERMATOPATHOLOGY (08/21/2023 12:00 AM CDT) Case Report Dermatopathology Report Case: [id number] Authorizing Provider: Anthony Cordova MD Collected: 08/21/2023 12:00 AM Ordering Location: [facility] DermPath Lab Received: 08/26/2023 04:01 PM Pathologist: Odalis Vasquez MD Specimens: A) - Skin, amterior scalp B) - Skin, right anterior neck C) - Skin, right post neck 1:44 PM CDT DERMATOPATHOLOGY LABORATORY Addendum 1 Addendum made in error. 1:44 PM CDT DERMATOPATHOLOGY LABORATORY Addendum electronically signed by Odalis Vasquez MD on 08/27/2023 at 1344 CDT Final Diagnosis Specimen A. 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 SKIN, right anterior neck: BASAL CELL CARCINOMA, NODULAR TYPE (C44.41) Specimen C. 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 LM. Path# [id number] B: SK vs. BCCA. Path# [id number] C: SK vs. BCCA. Path# [id number] 1:44 PM CDT DERMATOPATHOLOGY LABORATORY Gross Description Specimen A: Received is one formalin filled container labeled with the patient's name and designated anterior scalp. The specimen consists of a shave biopsy measuring 7x5x1 mm. Jar 0. Specimen B: Received is one formalin filled container labeled with the patient's name and designated right anterior neck. The specimen consists of a shave biopsy measuring 6x5x1 mm. Jar 0. Specimen C: Received is one formalin filled container labeled with the patient's name and designated right post neck. The specimen consists of a shave biopsy measuring 6x3x1 mm. Jar 0. 1:44 PM CDT DERMATOPATHOLOGY LABORATORY Microscopic Description Specimen A. SKIN, anterior scalp: There is a proliferation of melanocytes distributed in an irregular pattern along the dermal-epidermal junction with single cells predominating. Focal areas of confluence are present. This melanocytic proliferation is highlighted on MART-1/Melan-A. Focal dermal fibrosis is present. Specimen B. SKIN, right anterior neck: Within the dermis there are aggregates of basaloid cells with a high nuclear to cytoplasmic ratio and peripheral palisading. Specimen C. SKIN, right post neck: Within the dermis there are nodular aggregates of basaloid cells associated with fibromyxoid stroma and epithelial-stromal clefts. At the advancing margin of the neoplasm, there are smaller angulated nests that infiltrate the dermis. 1:44 PM CDT DERMATOPATHOLOGY LABORATORY Disclaimer An external and internal positive and negative controls are appropriate for the histochemical, immunohistochemical and immunofluorescence stain(s) in this case (if any), except where stated explicitly. The performance characteristics of the stain(s) cited in this report were developed and its performance characteristic determined by the Dermatopathology Laboratory at [facility], directed by Dr. Sal Blount. These tests need not be, and therefore are not, approved by the [place] Food and Drug Administration. The tests are used for clinical purposes. Billing Codes Specimen Charges Stain Charges 24433 [id number] 1 1 1 30517 1 1:44 PM CDT DERMATOPATHOLOGY LABORATORY Embedded Images 1:44 PM CDT DERMATOPATHOLOGY LABORATORY Pathology/Cytology TISSUE SPECIMEN FROM SKIN / Unknown 08/21/2023 08/26/2023 4:01 PM CDT Miscellaneous samples (specimen) TISSUE SPECIMEN FROM SKIN / Unknown 08/21/2023 08/26/2023 4:01 PM CDT Miscellaneous samples (specimen) TISSUE SPECIMEN FROM SKIN / Unknown 08/21/2023 08/26/2023 4:01 PM CDT us Anthony Cordova MD LAB - PATHOLOGY/CYTOLOGY ORDER YVAN Edited Result - Final DERMATOPATHOLOGY LABORATORY [facility] - Department of Dermatology [address] [phone] documented in this encounter Visit Diagnoses Not on filedocumented in this encounter
[2025-06-07 10:55] LABS: Estimated Glomerular Filt Rate > 60
== END 2025-06-07 07:33 | disposition home or self-care (01) ==
PROVIDERS: PCP Family Medicine; Visit Provider Urology
DX: R31.0 Gross hematuria (principal); R91.8 Other nonspecific abnormal finding of lung field; Z98.52 Vasectomy status
CPT/HCPCS: 74178; Q9967